=== PATIENT | male | born 1995 | race Caucasian/White ===

== ENCOUNTER → 2016-12-13 | Outpatient (CLI) | payer OTHER ==
[~2016-12-13] MED LIST: AMOXICILLIN500 MG PO; CLEOCIN150 MG PO; CYCLOBENZAPRINE10 MG PO; IBU800 MG PO; KEFLEX500 M1 PO; NORCO 5-325 TA1 EACH PO; TYLENOL COLD M240 M1; ZITHROMAX250 MG PO
[2016-12-13 15:06] LABS: SPERM MORPHOLOGY NORMAL FORMS >30 % (NORM >30)
== END | disposition home or self-care (01) ==
LOC: LAB 09:31
PROVIDERS: Obstetrics & Gynecology
DX: Z31.41 Encounter for fertility testing (principal)

== ENCOUNTER 2017-08-25 20:44 | Emergency (ER) | payer OTHER ==
[~2017-08-25] VITALS: Ht 157.4 cm; Wt 113.4 kg
[2017-08-25 22:09] VITALS: BP 138/72
== END 2017-08-25 22:31 | disposition home or self-care (01) ==
LOC: ED 20:44
DX: T78.40XA Allergy, unspecified, initial encounter (principal); X58.XXXA Exposure to other specified factors, initial encounter

== ENCOUNTER 2020-11-13 11:38 | Emergency (ER) | payer OTHER ==
[~2020-11-13] VITALS: Ht 154.9 cm; Wt 104.3 kg
[2020-11-13 12:43] VITALS: BP 120/51
== END 2020-11-13 14:15 | disposition home or self-care (01) ==
LOC: ED 11:38
DX: U07.1 COVID-19 (principal)

== ENCOUNTER 2021-06-09 04:36 | Emergency (ER) | payer OTHER ==
[~2021-06-09] VITALS: Ht 154.9 cm; Wt 122.5 kg
[2021-06-09 04:46] VITALS: BP 116/74
[2021-06-09 05:36] LABS: ALKALINE PHOSPHATASE 79 U/L (45-117); BUN 16 mg/dl (7-24); CHLORIDE 103 mmol/L (98-107); CREATININE 0.78 mg/dL (0.70-1.30); POTASSIUM 3.6 mmol/L (3.5-5.1); SGOT/AST 57 IU/L (3-35); SGPT/ALT 31 U/L (12-78); SODIUM 140 mmol/L (136-145); TOTAL PROTEIN 7.5 gm/dL (6.4-8.2)
[2021-06-09 06:07] LABS: BASO # 0.1 10*3/uL (0.0-0.1); BASO % 0.4 % (0.0-1.0); EOS # 0.2 10*3/uL (0.0-0.4); EOS % 1.7 % (1.0-4.0); HEMATOCRIT 45.3 % (42.0-52.0); LYMPH # 2.5 10*3/uL (1.3-4.4); LYMPH % 21.8 % (27.0-41.0); MEAN CELL VOLUME 87.6 fl (80.0-94.0); MEAN PLATELET VOLUME 9.5 fl (9.6-12.3); MONO # 0.9 10*3/uL (0.1-1.0); MONO % 8.2 % (3.0-9.0); NEUT # 7.8 10*3/uL (2.3-7.9); NEUT % 67.5 % (47.0-73.0); PLATELET COUNT AUTOMATED 299 10*3/uL (130-400); RED BLOOD COUNT 5.17 10*6/uL (4.50-5.90); RED CELL DISTRI WIDTH 12.7 % (0-14.5); WHITE BLOOD COUNT 11.5 10*3/uL (4.8-10.8)
== END 2021-06-09 06:15 | disposition home or self-care (01) ==
LOC: ED 04:36
PROVIDERS: Internal Medicine
DX: R07.9 Chest pain, unspecified (principal)

== ENCOUNTER 2023-11-23 13:27 | Emergency (ER) | payer OTHER ==
[~2023-11-23] VITALS: Ht 154.9 cm; Wt 111.1 kg
[2023-11-23 13:36] VITALS: BP 121/76
[2023-11-23] MEDS ORDERED: MULTIVITAMINS1 EAC6 PO (13:37)
[2023-11-23] MEDS ORDERED: PREDNISONE10 MG PO (13:48)
[2023-11-23] MEDS ORDERED: methylPREDNISolone sod succ 125 MG VIAL IM ONE (13:50)
== END 2023-11-23 14:10 | disposition home or self-care (01) ==
LOC: ED 13:27
DX: T78.49XA Other allergy, initial encounter (principal); M19.90 Unspecified osteoarthritis, unspecified site; Z98.890 Other specified postprocedural states; X58.XXXA Exposure to other specified factors, initial encounter

== ENCOUNTER 2024-08-30 23:05 | Emergency (ER) | payer OTHER ==
[~2024-08-30] VITALS: Ht 154.9 cm; Wt 113.4 kg
[~2024-08-30 23:05] MED LIST changes: +MULTIVITAMINS1 EAC6 PO; +PREDNISONE10 MG PO
[2024-08-30 23:14] VITALS: BP 119/52
[2024-08-30] MEDS ORDERED: Dexamethasone Sodium Phospha 20 MG/5 ML VIAL IM ONE (23:35)
[2024-08-30] MEDS ORDERED: HYDROXYZINE HCL25 MG PO (23:35)
[2024-08-30] MEDS ORDERED: PREDNISONE20 M1 PO (23:35)
== END 2024-08-31 00:30 | disposition home or self-care (01) ==
LOC: ED 23:05
DX: L23.9 Allergic contact dermatitis, unspecified cause (principal); Z79.899 Other long term (current) drug therapy